=== PATIENT | female | born 1955 | race Caucasian/White ===

== ENCOUNTER 2021-08-16 18:49 | Inpatient (IN) | payer BC, MEDICARE ==
[2021-08-16] MEDS ORDERED: niCARdipine 20MG In NaCl 20 MG/200 ML BAG ONE ×2 (19:10→21:24)
[2021-08-16] MEDS ORDERED: Mannitol 12.5 GM/50 ML ONE (19:19)
[2021-08-16] MEDS ORDERED: manNITOL 20% 500 ML ONE (19:21)
[2021-08-16] MEDS ORDERED: Rocuronium Bromide 10 MG/ML (10ML VIAL) ONE (19:22)
[2021-08-16 19:46] LABS: #Basophils 0.1 thou/uL (0.0-0.2); #Eosinphils 0.4 thou/uL (0.0-0.7); #Lymphocytes 3.4 thou/uL (1.20-3.40); #Monocytes 0.6 thou/uL (0.11-0.59); #Neutrophils 5.8 thou/uL (1.40-6.50); %Basophils 1.4 % (0.0-1.0); %Eosinophils 3.7 % (0.0-10.0); %Lymphocytes 32.6 % (21.0-51.0); %Monocytes 6.1 % (0.0-10.0); %Neutrophils 56.4 % (42.0-75.0); Hemoglobin 15.1 g/dL (12.0-16.0); Mean Corpuscular HGB CONC 34.9 g/dL (32.0-36.0); Mean Corpuscular Hemoglobin 32.5 pg (27.0-31.0); Mean Corpuscular Volume 93.3 fL (78.0-98.0); Mean Platelet Volume 6.9 fL (7.4-10.4); Platelet Count 320 thou/uL (130-400); RBC Distribution Width 11.5 % (11.5-14.5); Red Blood Cell (RBC) Count 4.64 mill/uL (4.20-5.40); White Blood Cell (WBC) Count 10.3 thou/uL (4.8-10.8)
[2021-08-16 20:00] LABS: ALT (SGPT) 17 U/L (8-55); AST (SGOT) 17 U/L (5-34); Alkaline Phosphatase 105 U/L (40-110); Anion Gap 18 mmol/L (10-20); BUN (Urea Nitrogen) 22 mg/dL (9.8-20.1); Bilirubin, Total 0.5 mg/dL (0.2-1.2); Calc. Creatinine Clearance 0 mL/min (70-130); Calcium 9.8 mg/dL (7.8-10.44); Carbon Dioxide 20 mmol/L (23-31); Chloride 101 mmol/L (98-107); Globulin 4.1 g/dL (2.4-3.5); Glucose 249 mg/dL (80-115); Potassium 3.3 mmol/L (3.5-5.1); Protein, Total 8.1 g/dL (5.8-8.1); Sodium 136 mmol/L (136-145)
[2021-08-16] MEDS ORDERED: Fentanyl CADD 100 ML IV SCH ×2 (20:00→22:15)
[2021-08-16 20:04] LABS: Prothrombin Time 12.8 sec (12.0-14.7)
[2021-08-16 20:05] LABS: PTT 28.1 sec (22.9-36.1)
[2021-08-16 20:12] LABS: Bacteria/HPF None Seen HPF (None Seen); Bilirubin Negative (Negative); Blood, Urine Negative (Negative); Clarity Clear (Clear); Glucose, Urine (Dipstick) 200 mg/dL (Negative); Ketone, Urine Negative (Negative); Leukocyte Negative Leu/uL (Negative); Nitrite Negative (Negative); Protein, Urine (Dipstick) 100 mg/dL (Neg-Trace); RBC/HPF 0-3 HPF (0-3); Specific Gravity, Urine 1.011 (1.002-1.036); Squamous Epithelial None Seen HPF (0-3); Urobilinogen Normal mg/dL (Less than 2); WBC/HPF 0-3 HPF (0-3); pH, Urine 6.5 (5.0-9.0)
[2021-08-16] MEDS ORDERED: Fentanyl 100 MCG/2 ML VIAL ONE ×2 (20:14)
[2021-08-16] MEDS ORDERED: niCARdipine 25 MG in Sodium Chloride 0.9% 250 ML 250 ML IVPB PRN (20:17)
[2021-08-16] MEDS ORDERED: Electrolyte Replacement Protocol 1 EACH IVPB PRN (20:17)
[2021-08-16] MEDS ORDERED: Bisacodyl 10 MG SUPP PR PRN (20:17)
[2021-08-16 20:18] LABS: Actual Bicarbonate (HCO3a) 21.4 mEq/L (22-28); Analyzer IN Cardio ER; Base Excess (BEa) -2.5 mEq/L (-2.0 to +3.0); CO2 Tension 34.5 mmHg (35.0-45.0); Calcium, Ionized (arterial) 1.16 mmol/L (1.12-1.30); Carboxyhemoglobin (COHb) 0.6 gm% (0.0-3.0); Hemoglobin (Hb) 14.9 g/dL (12.0-16.0); O2 Tension (PaO2), arterial 135.1 mmHg (> 80.0); Potassium - ABG Lab 3.01 mmol/L (3.70-5.30); pH, Arterial 7.41 (7.35-7.45)
[2021-08-16 20:21] LABS: Puncture Site LRA
[2021-08-16 20:24] LABS: ALV-art Gradient 534.775 mmHg (0-20)
[2021-08-16] MEDS ORDERED: Acetaminophen 650 MG Suppository PR PRN (20:26)
[2021-08-16] MEDS ORDERED: Ondansetron ODT 4 MG TAB PO PRN (20:26)
[2021-08-16] MEDS ORDERED: Ondansetron PF 4 MG/2 ML Vial IVP PRN (20:26)
[2021-08-16 21:34] LABS: SARS-CoV-2 NAA Rapid Test Not Detected (NotDetected)
[2021-08-16] MEDS ORDERED: Dextrose 5% in Water 1,000 ML IV PRN (21:51)
[2021-08-16] MEDS ORDERED: HumaLOG 300 UNITS/3 ML VIAL SC PRN (21:51)
[2021-08-16] MEDS ORDERED: Dextrose 50% Abboject 50 ML SYRINGE SLOW IVP PRN (21:51)
[2021-08-16] MEDS ORDERED: Ventilator Sedation Protocol 1 EACH FS SCH (22:15)
[2021-08-16] MEDS ORDERED: DISCONTINUE PREVIOUS NARCOTIC PAIN MEDICATIONS AND BENZODIAZEPINES FS SCH (22:15)
[2021-08-16] MEDS ORDERED: Morphine 4 MG/ML VIAL SLOW IVP PRN (22:15)
[2021-08-16] MEDS ORDERED: Propofol 1,000 MG/100 ML VIAL IV PRN (22:15)
[2021-08-16] MEDS ORDERED: Morphine 2 MG/ML VIAL SLOW IVP PRN (22:15)
[2021-08-16] MEDS ORDERED: Propofol BOLUS 1,000 MG/100 ML VIAL IV PRN (22:15)
[2021-08-16] MEDS ORDERED: Fentanyl BOLUS 250 ML IVPB PRN (22:15)
[2021-08-16] MEDS ORDERED: Lorazepam 2 MG/ML VIAL SLOW IVP PRN (22:15)
[2021-08-16] MEDS: Sodium Chloride 0.9% 1,000 ML IV SCH (22:40)
[2021-08-16] MEDS: Famotidine/PF 20 mg/2ml Vial SLOW IVP SCH (22:41)
[2021-08-16] MEDS ORDERED: Potassium Chloride 40 MEQ in Premix Bag 1 BAG IVPB SCH (22:45)
[2021-08-16] MEDS ORDERED: Electrolyte Replacement Protocol 1 EACH FS SCH (22:45)
[2021-08-17 02:31] LABS: Sodium 137 mmol/L (136-145)
[2021-08-17 02:50] LABS: Anion Gap 22 mmol/L (10-20); BUN (Urea Nitrogen) 22 mg/dL (9.8-20.1); Calc. Creatinine Clearance 103 mL/min (70-130); Calcium 9.6 mg/dL (7.8-10.44); Carbon Dioxide 18 mmol/L (23-31); Chloride 103 mmol/L (98-107); Glucose 301 mg/dL (80-115); Magnesium 1.7 mg/dL (1.6-2.6); Potassium 4.1 mmol/L (3.5-5.1); Sodium 139 mmol/L (136-145)
[2021-08-17] MEDS: Mannitol 12.5 GM/50 ML IV PRN ×2 (02:59→11:17)
[2021-08-17 03:58] LABS: #Lymphocytes 1.5 thou/uL (1.20-3.40); #Monocytes 0.7 thou/uL (0.11-0.59); #Neutrophils 11.3 thou/uL (1.40-6.50); %Basophils 0.3 % (0.0-1.0); %Eosinophils 0.2 % (0.0-10.0); %Lymphocytes 10.9 % (21.0-51.0); %Monocytes 5.1 % (0.0-10.0); %Neutrophils 83.5 % (42.0-75.0); Hemoglobin 14.7 g/dL (12.0-16.0); Mean Corpuscular HGB CONC 35.1 g/dL (32.0-36.0); Mean Corpuscular Hemoglobin 32.4 pg (27.0-31.0); Mean Corpuscular Volume 92.5 fL (78.0-98.0); Mean Platelet Volume 6.9 fL (7.4-10.4); Platelet Count 306 thou/uL (130-400); RBC Distribution Width 11.4 % (11.5-14.5); Red Blood Cell (RBC) Count 4.54 mill/uL (4.20-5.40); White Blood Cell (WBC) Count 13.6 thou/uL (4.8-10.8)
[2021-08-17] MEDS: niCARdipine 50 MG in Sodium Chloride 0.9% 250 ML 250 ML IVPB PRN ×2 (04:16→07:46)
[2021-08-17] MEDS: HumaLOG 300 UNITS/3 ML VIAL SC PRN ×4 (04:32→20:38)
[2021-08-17] MEDS ORDERED: Magnesium 2 GM/50 ML 2 GM in Premix Bag 1 BAG IVPB SCH (05:00)
[2021-08-17] MEDS: Sodium Chloride 0.9% 1,000 ML IV SCH ×2 (07:46→20:03)
[2021-08-17] MEDS: Famotidine/PF 20 mg/2ml Vial SLOW IVP SCH ×2 (08:35→20:04)
[2021-08-17] MEDS ORDERED: FLU VACC QS2021-22(65YR UP)/PF 240 MCG/0.7 ML SYRINGE IM ONE (09:00)
[2021-08-17] MEDS: niCARdipine 50 MG in Sodium Chloride 0.9% 250 ML 230 ML IVPB PRN ×3 (15:40→22:30)
[2021-08-17] MEDS: levETIRAcetam in NS 500 MG in Premix Bag 1 BAG IVPB SCH (20:03)
[2021-08-17] MEDS: Acetaminophen 325 MG TAB PO PRN (20:23)
[2021-08-18] MEDS: HumaLOG 300 UNITS/3 ML VIAL SC PRN ×7 (00:49→23:59)
[2021-08-18 03:48] LABS: #Lymphocytes 1.6 thou/uL (1.20-3.40); #Monocytes 0.9 thou/uL (0.11-0.59); #Neutrophils 12.4 thou/uL (1.40-6.50); %Basophils 0.2 % (0.0-1.0); %Eosinophils 0.1 % (0.0-10.0); %Lymphocytes 10.9 % (21.0-51.0); %Monocytes 6.1 % (0.0-10.0); %Neutrophils 82.7 % (42.0-75.0); Hemoglobin 14.2 g/dL (12.0-16.0); Mean Corpuscular Volume 94.2 fL (78.0-98.0); Mean Platelet Volume 7.1 fL (7.4-10.4); Platelet Count 306 thou/uL (130-400); RBC Distribution Width 11.9 % (11.5-14.5); Red Blood Cell (RBC) Count 4.44 mill/uL (4.20-5.40); White Blood Cell (WBC) Count 14.9 thou/uL (4.8-10.8)
[2021-08-18 04:10] LABS: ALT (SGPT) 27 U/L (8-55); AST (SGOT) 33 U/L (5-34); Albumin 3.5 g/dL (3.4-4.8); Alkaline Phosphatase 102 U/L (40-110); Anion Gap 14 mmol/L (10-20); BUN (Urea Nitrogen) 26 mg/dL (9.8-20.1); Bilirubin, Total 0.8 mg/dL (0.2-1.2); Calc. Creatinine Clearance 103 mL/min (70-130); Calcium 8.6 mg/dL (7.8-10.44); Carbon Dioxide 20 mmol/L (23-31); Chloride 113 mmol/L (98-107); Globulin 3.2 g/dL (2.4-3.5); Glucose 269 mg/dL (80-115); Magnesium 2.1 mg/dL (1.6-2.6); Potassium 3.9 mmol/L (3.5-5.1); Protein, Total 6.7 g/dL (5.8-8.1); Sodium 143 mmol/L (136-145)
[2021-08-18] MEDS: Sodium Chloride 0.9% 1,000 ML IV SCH ×3 (05:41→23:11)
[2021-08-18] MEDS: niCARdipine 50 MG in Sodium Chloride 0.9% 250 ML 230 ML IVPB PRN ×5 (05:41→23:31)
[2021-08-18] MEDS: levETIRAcetam in NS 500 MG in Premix Bag 1 BAG IVPB SCH ×2 (08:15→20:06)
[2021-08-18] MEDS: Famotidine/PF 20 mg/2ml Vial SLOW IVP SCH ×2 (08:15→20:07)
[2021-08-18] MEDS ORDERED: Piperacillin/Tazobactam 3.375 GM in Sodium Chloride 0.9% 100 ML IVPB SCH ×2 (09:00→12:00)
[2021-08-18] MEDS ORDERED: Vancomycin HCl 2.5 GM in Sodium Chloride 0.9% 500 ML IVPB SCH (09:15)
[2021-08-18] MEDS: Piperacillin/Tazobactam 3.375 GM in Sodium Chloride 0.9% 100 ML IVPB SCH ×2 (13:22→20:06)
[2021-08-19] MEDS: niCARdipine 50 MG in Sodium Chloride 0.9% 250 ML 230 ML IVPB PRN ×4 (03:48→20:40)
[2021-08-19 04:35] LABS: #Basophils 0.1 thou/uL (0.0-0.2); #Lymphocytes 2.3 thou/uL (1.20-3.40); #Monocytes 1.2 thou/uL (0.11-0.59); #Neutrophils 14.3 thou/uL (1.40-6.50); %Basophils 0.5 % (0.0-1.0); %Eosinophils 0.1 % (0.0-10.0); %Monocytes 6.5 % (0.0-10.0); Hemoglobin 13.5 g/dL (12.0-16.0); Mean Corpuscular HGB CONC 33.9 g/dL (32.0-36.0); Mean Corpuscular Hemoglobin 32.1 pg (27.0-31.0); Mean Corpuscular Volume 94.8 fL (78.0-98.0); Mean Platelet Volume 7.3 fL (7.4-10.4); Platelet Count 304 thou/uL (130-400); RBC Distribution Width 11.7 % (11.5-14.5); Red Blood Cell (RBC) Count 4.22 mill/uL (4.20-5.40); White Blood Cell (WBC) Count 17.8 thou/uL (4.8-10.8)
[2021-08-19] MEDS: Piperacillin/Tazobactam 3.375 GM in Sodium Chloride 0.9% 100 ML IVPB SCH ×3 (04:49→20:39)
[2021-08-19] MEDS: HumaLOG 300 UNITS/3 ML VIAL SC PRN ×5 (04:50→20:42)
[2021-08-19 05:07] LABS: ALT (SGPT) 69 U/L (8-55); AST (SGOT) 71 U/L (5-34); Albumin 3.3 g/dL (3.4-4.8); Alkaline Phosphatase 108 U/L (40-110); Anion Gap 13 mmol/L (10-20); BUN (Urea Nitrogen) 46 mg/dL (9.8-20.1); Bilirubin, Total 0.7 mg/dL (0.2-1.2); Calc. Creatinine Clearance 92 mL/min (70-130); Calcium 8.6 mg/dL (7.8-10.44); Carbon Dioxide 20 mmol/L (23-31); Chloride 117 mmol/L (98-107); Glucose 332 mg/dL (80-115); Magnesium 2.2 mg/dL (1.6-2.6); Phosphorus 2.3 mg/dL (2.3-4.7); Potassium 3.7 mmol/L (3.5-5.1); Protein, Total 6.3 g/dL (5.8-8.1); Sodium 146 mmol/L (136-145)
[2021-08-19] MEDS ORDERED: Lantus 1000 UNITS/10 ML VIAL SC SCH (07:15)
[2021-08-19] MEDS: Sodium Chloride 0.9% 1,000 ML IV SCH ×2 (08:05→19:22)
[2021-08-19] MEDS: Famotidine/PF 20 mg/2ml Vial SLOW IVP SCH ×2 (08:28→20:40)
[2021-08-19] MEDS: levETIRAcetam in NS 500 MG in Premix Bag 1 BAG IVPB SCH ×2 (08:28→20:39)
[2021-08-19] MEDS: VANCOMYCIN 2 GRAM/400 ML BAG 2 GM in Premix Bag 1 BAG IVPB SCH (08:28)
[2021-08-19] MEDS: NPH, Human Insulin Isophane 300 UNIT/3 ML VIAL SC SCH ×2 (12:56→18:16)
[2021-08-20] MEDS: HumaLOG 300 UNITS/3 ML VIAL SC PRN ×6 (00:18→22:20)
[2021-08-20] MEDS: NPH, Human Insulin Isophane 300 UNIT/3 ML VIAL SC SCH ×4 (00:20→17:38)
[2021-08-20] MEDS: niCARdipine 50 MG in Sodium Chloride 0.9% 250 ML 230 ML IVPB PRN ×6 (02:40→22:11)
[2021-08-20 04:24] LABS: #Basophils 0.1 thou/uL (0.0-0.2); #Lymphocytes 2.5 thou/uL (1.20-3.40); #Monocytes 0.9 thou/uL (0.11-0.59); #Neutrophils 10.2 thou/uL (1.40-6.50); %Basophils 0.7 % (0.0-1.0); %Eosinophils 0.3 % (0.0-10.0); %Lymphocytes 18.3 % (21.0-51.0); %Monocytes 6.7 % (0.0-10.0); Hemoglobin 12.7 g/dL (12.0-16.0); Mean Corpuscular HGB CONC 31.9 g/dL (32.0-36.0); Mean Corpuscular Hemoglobin 30.1 pg (27.0-31.0); Mean Corpuscular Volume 94.5 fL (78.0-98.0); Mean Platelet Volume 7.5 fL (7.4-10.4); Platelet Count 294 thou/uL (130-400); RBC Distribution Width 11.8 % (11.5-14.5); Red Blood Cell (RBC) Count 4.21 mill/uL (4.20-5.40); White Blood Cell (WBC) Count 13.8 thou/uL (4.8-10.8)
[2021-08-20 04:48] LABS: ALT (SGPT) 75 U/L (8-55); AST (SGOT) 58 U/L (5-34); Alkaline Phosphatase 116 U/L (40-110); Anion Gap 14 mmol/L (10-20); BUN (Urea Nitrogen) 41 mg/dL (9.8-20.1); Bilirubin, Total 0.5 mg/dL (0.2-1.2); Calc. Creatinine Clearance 104 mL/min (70-130); Calcium 8.4 mg/dL (7.8-10.44); Carbon Dioxide 17 mmol/L (23-31); Chloride 124 mmol/L (98-107); Glucose 303 mg/dL (80-115); Magnesium 2.3 mg/dL (1.6-2.6); Phosphorus 2.7 mg/dL (2.3-4.7); Potassium 3.9 mmol/L (3.5-5.1); Sodium 151 mmol/L (136-145)
[2021-08-20] MEDS: Piperacillin/Tazobactam 3.375 GM in Sodium Chloride 0.9% 100 ML IVPB SCH ×3 (05:42→22:24)
[2021-08-20 08:52] LABS: Vancomycin, Trough 12.9 ug/mL
[2021-08-20] MEDS: Famotidine/PF 20 mg/2ml Vial SLOW IVP SCH ×2 (09:48→22:22)
[2021-08-20] MEDS: levETIRAcetam in NS 500 MG in Premix Bag 1 BAG IVPB SCH ×2 (09:52→22:24)
[2021-08-20] MEDS: Vancomycin 1 GM in Premix Bag 1 BAG IVPB SCH ×2 (10:10→22:34)
[2021-08-20] MEDS: VANCOMYCIN 2 GRAM/400 ML BAG 2 GM in Premix Bag 1 BAG IVPB SCH (14:38)
[2021-08-21] MEDS: NPH, Human Insulin Isophane 300 UNIT/3 ML VIAL SC SCH ×5 (00:43→23:56)
[2021-08-21] MEDS: HumaLOG 300 UNITS/3 ML VIAL SC PRN ×5 (00:58→20:26)
[2021-08-21] MEDS: niCARdipine 50 MG in Sodium Chloride 0.9% 250 ML 230 ML IVPB PRN ×5 (01:00→20:30)
[2021-08-21 04:52] LABS: #Basophils 0.1 thou/uL (0.0-0.2); #Eosinphils 0.1 thou/uL (0.0-0.7); #Lymphocytes 3.1 thou/uL (1.20-3.40); %Basophils 0.8 % (0.0-1.0); %Monocytes 7.4 % (0.0-10.0); %Neutrophils 67.8 % (42.0-75.0); Hemoglobin 13.2 g/dL (12.0-16.0); Mean Corpuscular HGB CONC 33.8 g/dL (32.0-36.0); Mean Corpuscular Hemoglobin 32.1 pg (27.0-31.0); Mean Platelet Volume 7.8 fL (7.4-10.4); Platelet Count 284 thou/uL (130-400); RBC Distribution Width 11.7 % (11.5-14.5); White Blood Cell (WBC) Count 13.2 thou/uL (4.8-10.8)
[2021-08-21] MEDS: Piperacillin/Tazobactam 3.375 GM in Sodium Chloride 0.9% 100 ML IVPB SCH ×3 (05:23→20:20)
[2021-08-21 06:05] LABS: ALT (SGPT) 68 U/L (8-55); AST (SGOT) 42 U/L (5-34); Albumin 3.1 g/dL (3.4-4.8); Alkaline Phosphatase 134 U/L (40-110); Anion Gap 15 mmol/L (10-20); BUN (Urea Nitrogen) 42 mg/dL (9.8-20.1); Bilirubin, Total 0.5 mg/dL (0.2-1.2); Calc. Creatinine Clearance 99 mL/min (70-130); Calcium 8.9 mg/dL (7.8-10.44); Carbon Dioxide 18 mmol/L (23-31); Chloride 125 mmol/L (98-107); Globulin 3.1 g/dL (2.4-3.5); Glucose 226 mg/dL (80-115); Magnesium 2.2 mg/dL (1.6-2.6); Phosphorus 3.3 mg/dL (2.3-4.7); Potassium 3.8 mmol/L (3.5-5.1); Protein, Total 6.2 g/dL (5.8-8.1); Sodium 154 mmol/L (136-145)
[2021-08-21] MEDS: Acetaminophen 325 MG TAB PO PRN ×2 (08:15→18:30)
[2021-08-21] MEDS: Famotidine/PF 20 mg/2ml Vial SLOW IVP SCH ×2 (08:33→20:17)
[2021-08-21] MEDS: levETIRAcetam in NS 500 MG in Premix Bag 1 BAG IVPB SCH ×2 (08:33→20:20)
[2021-08-21] MEDS: Vancomycin 1 GM in Premix Bag 1 BAG IVPB SCH ×2 (10:10→22:07)
[2021-08-22] MEDS: Acetaminophen 325 MG TAB PO PRN ×3 (01:07→16:51)
[2021-08-22] MEDS: niCARdipine 50 MG in Sodium Chloride 0.9% 250 ML 230 ML IVPB PRN ×6 (01:07→20:57)
[2021-08-22] MEDS: Piperacillin/Tazobactam 3.375 GM in Sodium Chloride 0.9% 100 ML IVPB SCH ×3 (04:46→20:30)
[2021-08-22] MEDS: NPH, Human Insulin Isophane 300 UNIT/3 ML VIAL SC SCH ×3 (04:52→23:40)
[2021-08-22] MEDS: HumaLOG 300 UNITS/3 ML VIAL SC PRN ×5 (04:54→23:39)
[2021-08-22] MEDS: hydrALAZINE 20 MG/ML VIAL SLOW IVP PRN ×3 (05:33→15:15)
[2021-08-22 06:45] LABS: #Basophils 0.2 thou/uL (0.0-0.2); #Eosinphils 0.3 thou/uL (0.0-0.7); #Lymphocytes 3.3 thou/uL (1.20-3.40); #Monocytes 0.8 thou/uL (0.11-0.59); #Neutrophils 11.3 thou/uL (1.40-6.50); %Eosinophils 1.8 % (0.0-10.0); %Lymphocytes 20.9 % (21.0-51.0); %Monocytes 4.8 % (0.0-10.0); %Neutrophils 71.6 % (42.0-75.0); Hemoglobin 14.6 g/dL (12.0-16.0); Mean Corpuscular HGB CONC 33.9 g/dL (32.0-36.0); Mean Corpuscular Hemoglobin 32.1 pg (27.0-31.0); Mean Corpuscular Volume 94.6 fL (78.0-98.0); Mean Platelet Volume 7.9 fL (7.4-10.4); Platelet Count 282 thou/uL (130-400); RBC Distribution Width 11.9 % (11.5-14.5); Red Blood Cell (RBC) Count 4.56 mill/uL (4.20-5.40); White Blood Cell (WBC) Count 15.8 thou/uL (4.8-10.8)
[2021-08-22 06:54] LABS: Albumin 3.3 g/dL (3.4-4.8)
[2021-08-22 06:56] LABS: Calcium 9.1 mg/dL (7.8-10.44); Chloride 125 mmol/L (98-107); Potassium 3.8 mmol/L (3.5-5.1); Sodium 156 mmol/L (136-145)
[2021-08-22 06:57] LABS: Globulin 3.5 g/dL (2.4-3.5); Glucose 286 mg/dL (80-115); Protein, Total 6.8 g/dL (5.8-8.1)
[2021-08-22 06:58] LABS: Anion Gap 17 mmol/L (10-20); Carbon Dioxide 18 mmol/L (23-31)
[2021-08-22 06:59] LABS: Bilirubin, Total 0.5 mg/dL (0.2-1.2)
[2021-08-22 07:00] LABS: Alkaline Phosphatase 159 U/L (40-110); Calc. Creatinine Clearance 85 mL/min (70-130); Phosphorus 3.8 mg/dL (2.3-4.7)
[2021-08-22 07:01] LABS: BUN (Urea Nitrogen) 36 mg/dL (9.8-20.1)
[2021-08-22 07:02] LABS: AST (SGOT) 33 U/L (5-34); Magnesium 2.3 mg/dL (1.6-2.6)
[2021-08-22 07:03] LABS: ALT (SGPT) 57 U/L (8-55)
[2021-08-22] MEDS: levETIRAcetam in NS 500 MG in Premix Bag 1 BAG IVPB SCH ×2 (09:00→20:13)
[2021-08-22] MEDS: Famotidine/PF 20 mg/2ml Vial SLOW IVP SCH ×2 (09:02→20:18)
[2021-08-22] MEDS: Dextrose 5% in Water 1,000 ML IV SCH ×2 (09:02→18:19)
[2021-08-22] MEDS: Vancomycin 1 GM in Premix Bag 1 BAG IVPB SCH (10:13)
[2021-08-22] MEDS ORDERED: NPH, Human Insulin Isophane 300 UNIT/3 ML VIAL SC SCH ×2 (12:00→12:30)
[2021-08-22] MEDS ORDERED: Metoprolol Tartrate 25 MG TAB PER TUBE SCH (16:45)
[2021-08-22] MEDS: Metoprolol Tartrate 25 MG TAB PER TUBE SCH (23:40)
[2021-08-23] MEDS: Piperacillin/Tazobactam 3.375 GM in Sodium Chloride 0.9% 100 ML IVPB SCH ×2 (04:14→13:10)
[2021-08-23] MEDS: HumaLOG 300 UNITS/3 ML VIAL SC PRN ×4 (04:15→20:58)
[2021-08-23 04:29] LABS: ALT (SGPT) 42 U/L (8-55); AST (SGOT) 24 U/L (5-34); Albumin 2.8 g/dL (3.4-4.8); Alkaline Phosphatase 139 U/L (40-110); Anion Gap 17 mmol/L (10-20); BUN (Urea Nitrogen) 38 mg/dL (9.8-20.1); Bilirubin, Total 0.4 mg/dL (0.2-1.2); Calc. Creatinine Clearance 99 mL/min (70-130); Calcium 8.8 mg/dL (7.8-10.44); Carbon Dioxide 17 mmol/L (23-31); Chloride 124 mmol/L (98-107); Globulin 3.2 g/dL (2.4-3.5); Glucose 310 mg/dL (80-115); Phosphorus 3.9 mg/dL (2.3-4.7); Potassium 4.7 mmol/L (3.5-5.1); Sodium 153 mmol/L (136-145)
[2021-08-23] MEDS: Metoprolol Tartrate 25 MG TAB PER TUBE SCH ×3 (05:09→18:38)
[2021-08-23] MEDS: NPH, Human Insulin Isophane 300 UNIT/3 ML VIAL SC SCH (05:09)
[2021-08-23] MEDS: Dextrose 5% in Water 1,000 ML IV SCH ×2 (05:13→13:14)
[2021-08-23] MEDS: niCARdipine 50 MG in Sodium Chloride 0.9% 250 ML 230 ML IVPB PRN ×3 (06:20→18:37)
[2021-08-23] MEDS: levETIRAcetam in NS 500 MG in Premix Bag 1 BAG IVPB SCH ×2 (09:27→20:48)
[2021-08-23] MEDS: Famotidine/PF 20 mg/2ml Vial SLOW IVP SCH ×2 (09:29→20:48)
[2021-08-23] MEDS: Lantus 1000 UNITS/10 ML VIAL SC SCH (09:31)
[2021-08-23] MEDS: Acetaminophen 325 MG TAB PO PRN ×2 (13:11→21:16)
[2021-08-23] MEDS ORDERED: Magnesium 2 GM/50 ML 2 GM in Premix Bag 1 BAG IVPB SCH (15:00)
[2021-08-23] MEDS ORDERED: Lantus 1000 UNITS/10 ML VIAL SC SCH (21:00)
[2021-08-24] MEDS: Dextrose 5% in Water 1,000 ML IV SCH ×2 (00:18→11:15)
[2021-08-24] MEDS: Metoprolol Tartrate 25 MG TAB PER TUBE SCH ×4 (00:18→17:18)
[2021-08-24] MEDS: HumaLOG 300 UNITS/3 ML VIAL SC PRN ×4 (00:27→12:07)
[2021-08-24] MEDS: hydrALAZINE 20 MG/ML VIAL SLOW IVP PRN ×2 (04:35→08:55)
[2021-08-24 04:54] LABS: ALT (SGPT) 34 U/L (8-55); AST (SGOT) 23 U/L (5-34); Albumin 2.9 g/dL (3.4-4.8); Alkaline Phosphatase 135 U/L (40-110); Anion Gap 14 mmol/L (10-20); BUN (Urea Nitrogen) 26 mg/dL (9.8-20.1); Bilirubin, Total 0.5 mg/dL (0.2-1.2); Calc. Creatinine Clearance 113 mL/min (70-130); Calcium 8.7 mg/dL (7.8-10.44); Carbon Dioxide 21 mmol/L (23-31); Chloride 118 mmol/L (98-107); Glucose 207 mg/dL (80-115); Magnesium 2.3 mg/dL (1.6-2.6); Phosphorus 3.4 mg/dL (2.3-4.7); Potassium 3.6 mmol/L (3.5-5.1); Protein, Total 5.9 g/dL (5.8-8.1); Sodium 149 mmol/L (136-145)
[2021-08-24] MEDS: Acetaminophen 325 MG TAB PO PRN (05:06)
[2021-08-24] MEDS: niCARdipine 50 MG in Sodium Chloride 0.9% 250 ML 230 ML IVPB PRN ×2 (05:47→10:21)
[2021-08-24] MEDS: Famotidine/PF 20 mg/2ml Vial SLOW IVP SCH (08:55)
[2021-08-24] MEDS: Lantus 1000 UNITS/10 ML VIAL SC SCH (08:55)
[2021-08-24] MEDS: levETIRAcetam in NS 500 MG in Premix Bag 1 BAG IVPB SCH (08:55)
[2021-08-24 13:41] VITALS: TEMP 99.6
[2021-08-24 14:41] VITALS: BP 148/61
[2021-08-24 14:57] VITALS: BMI 43.7
[2021-08-24] MEDS: Lorazepam 2 MG/ML VIAL SLOW IVP PRN ×4 (15:14→21:46)
[2021-08-24] MEDS: Morphine 4 MG/ML VIAL SLOW IVP PRN ×10 (15:15→21:45)
[2021-08-24] MEDS ORDERED: Lorazepam 2 MG/ML VIAL SLOW IVP SCH (15:50)
[2021-08-24] MEDS ORDERED: Atropine Sulfate 1% Ophth Soln 5 ml Bottle PO SCH ×2 (16:16→21:00)
== END 2021-08-24 23:55 | disposition expired | DRG 64 ==
LOC: ERS 18:49 → CCU 19:16 → T4-B 08-24 18:21
PROVIDERS: ADMIT Student in an Organized Health Care Education/Training Program; ATTEND Internal Medicine
PROC: 0BH18EZ Insertion of Endotracheal Airway into Trachea, Via Natural or Artificial Opening Endoscopic (ICD-10-PCS; principal; 2021-08-16)
PROC: 5A1955Z Respiratory Ventilation, Greater than 96 Consecutive Hours (ICD-10-PCS; 2021-08-16)
DX: I62.9 Nontraumatic intracranial hemorrhage, unspecified (principal); J96.01 Acute respiratory failure with hypoxia; G93.5 Compression of brain; Z66 Do not resuscitate; Z51.5 Encounter for palliative care; G93.41 Metabolic encephalopathy; I16.1 Hypertensive emergency; G81.94 Hemiplegia, unspecified affecting left nondominant side; E87.0 Hyperosmolality and hypernatremia; E06.3 Autoimmune thyroiditis; E11.9 Type 2 diabetes mellitus without complications; I10 Essential (primary) hypertension; M19.90 Unspecified osteoarthritis, unspecified site; F41.9 Anxiety disorder, unspecified; F32.9 Major depressive disorder, single episode, unspecified; M06.9 Rheumatoid arthritis, unspecified; Z20.822 Contact with and (suspected) exposure to COVID-19; Z88.2 Allergy status to sulfonamides; Z98.51 Tubal ligation status; Z90.710 Acquired absence of both cervix and uterus; Z90.49 Acquired absence of other specified parts of digestive tract
CPT/HCPCS: 31500; 36415; 36416; 36600; 51702; 70450; 71045; 80053; 80202; 81003; 81015; 82805; 83735; 83930; 84100; 84295; 84484; 85025; 85610; 85730; 87070; 87205; 93005; 94002; 94003; 94760; 95712; 95819; 95957; 96365; 96366; 96368; 96376; 99292; J0360; J1815; J1953; J2060; J2150; J2270; J2543; J2704; J3010; J3370; J3475; J3480; J3490; J7030; J7050; J7070; J7799; S0028; U0002